=== PATIENT | female | born 1985 | race Caucasian/White ===

== ENCOUNTER 2016-07-11 20:49 | Emergency (ER) | payer MEDICAID ==
[~2016-07-11] VITALS: Ht 162.6 cm; Wt 62.7 kg
[2016-07-11 21:03] VITALS: BP 127/82
[2016-07-11] MEDS ORDERED: OXYcodone/APAP 5/325MG TABLET PO ONE (21:30)
[2016-07-11] MEDS ORDERED: OXYcodone/APAP 5/325MG TABLET ONE (21:31)
== END 2016-07-11 21:57 | disposition home or self-care (01) ==
LOC: ED 21:44
DX: K02.9 Dental caries, unspecified (principal)
CPT/HCPCS: 99283

== ENCOUNTER 2016-08-25 01:29 | Inpatient (IN) | payer MEDICAID ==
[~2016-08-25] VITALS: Ht 165.1 cm; Wt 65.0 kg
[2016-08-25] MEDS ORDERED: PIPERACILLIN/TAZO/PMX 3.375GM 50 ML ONE (02:39)
[2016-08-25] MEDS ORDERED: SODIUM CHLORIDE 0.9% 1,000ML IVBOLUS ONE (03:00)
[2016-08-25] MEDS ORDERED: PIPERACILLIN/TAZO/PMX 3.375GM 50 ML IV ONE (03:00)
[2016-08-25] MEDS ORDERED: VANCOMYCIN PER PHARMACY MC ONE (03:00)
[2016-08-25] MEDS ORDERED: VANCOMYCIN 1,200 MG in SODIUM CHLORIDE 0.9% 250 ML IV ONE (03:00)
[2016-08-25 03:34] LABS: ASPARTATE AMINO TRANSFERASE 52 U/L (15-37); BLOOD UREA NITROGEN 8 mg/dL (7-18)
[2016-08-25] MEDS ORDERED: D5%-0.45NACL+KCL 40MEQ 1,000 ML IV ONE (05:30)
[2016-08-25] MEDS ORDERED: POTASSIUM CHLORIDE 20 MEQ TAB.ER.PRT PO ONE (05:30)
[2016-08-25] MEDS ORDERED: POTASSIUM CHLORIDE 20 MEQ TAB.ER.PRT ONE (05:32)
[2016-08-25] MEDS: ENOXAPARIN 40 MG/0.4 ML SQ SCH (06:30)
[2016-08-25] MEDS ORDERED: TRAZODONE 50MG TABLET PO PRN (06:30)
[2016-08-25] MEDS ORDERED: BISACODYL 10 MG SUPP PR PRN (06:30)
[2016-08-25] MEDS ORDERED: LABETALOL 5MG/ML, 20ML IVPush PRN (06:30)
[2016-08-25] MEDS ORDERED: VANCOMYCIN PER PHARMACY MC PRN (06:30)
[2016-08-25] MEDS ORDERED: POLYETHYLENE GLYCOL 17 GM PACKET PO PRN (06:30)
[2016-08-25] MEDS ORDERED: ACETAMINOPHEN 325 MG TABLET PO PRN (06:30)
[2016-08-25] MEDS ORDERED: PHARMACOKINETIC MONITORING MC PRN (06:30)
[2016-08-25] MEDS ORDERED: DOCUSATE 100 MG CAPSULE PO PRN (06:30)
[2016-08-25 06:42] VITALS: BP 111/75
[2016-08-25 08:03] VITALS: BP 110/69
[2016-08-25] MEDS: NICOTINE 14MG/24 HR PATCH.TD24 TD SCH (10:06)
[2016-08-25] MEDS: MORPHINE SULFATE 4 MG/ML, 1ML IVPush PRN ×4 (10:06→21:40)
[2016-08-25] MEDS: AMPICILLIN/SULBACTAM 3 GM in SODIUM CHLORIDE 0.9% 100 ML IV SCH ×3 (10:06→23:31)
[2016-08-25] MEDS: NS + 20MEQ KCL 1,000 ML IV SCH ×2 (10:06→17:03)
[2016-08-25 11:48] LABS: HEPATITIS C VIRUS ANTIBODY Nonreactive (Nonreactive)
[2016-08-25 12:10] VITALS: BP 105/65
[2016-08-25 12:48] LABS: HIV 1&2 ANTIBODY SCREEN Nonreactive (Nonreactive); HIV-1 p24 ANTIGEN Nonreactive (Nonreactive)
[2016-08-25] MEDS ORDERED: HYDROmorphone 2 MG/ML, 1ML ONE ×3 (14:42→15:41)
[2016-08-25] MEDS ORDERED: MIDAZOLAM 1 MG/ML, 2ML ONE ×2 (14:42)
[2016-08-25] MEDS ORDERED: PROPOFOL 10 MG/ML, 20ML ONE (14:50)
[2016-08-25] MEDS ORDERED: MIDAZOLAM 1 MG/ML, 2ML IV PRN (15:30)
[2016-08-25] MEDS ORDERED: FENTANYL PF 100 MCG/2ML IV PRN (15:30)
[2016-08-25] MEDS ORDERED: OXYcodone 5 MG/5 ML ORAL.SOL UDC PO PRN (15:30)
[2016-08-25] MEDS ORDERED: ONDANSETRON 2MG/ML, 2ML IVPush PRN (15:30)
[2016-08-25] MEDS ORDERED: hydrALAzine 20 MG/ML, 1ML IV PRN (15:30)
[2016-08-25] MEDS ORDERED: PROMETHAZINE 25 MG/ML, 1ML IV PRN (15:30)
[2016-08-25] MEDS ORDERED: LABETALOL 5MG/ML, 20ML IV PRN (15:30)
[2016-08-25] MEDS ORDERED: MEPERIDINE/PF 25MG/0.5ML IVPush PRN (15:30)
[2016-08-25] MEDS ORDERED: ALBUTEROL SULFATE 2.5 MG/3 ML NPPB PRN (15:30)
[2016-08-25] MEDS ORDERED: HYDROmorphone 1 MG/ML, 1ML IV PRN (15:30)
[2016-08-25] MEDS ORDERED: OXYcodone 5 MG/5 ML ORAL.SOL UDC ONE (15:41)
[2016-08-25] MEDS ORDERED: FENTANYL PF 100 MCG/2ML ONE (15:41)
[2016-08-25] MEDS: VANCOMYCIN 1,200 MG in SODIUM CHLORIDE 0.9% 250 ML IV SCH (18:17)
[2016-08-25 19:12] VITALS: BP 125/80
[2016-08-25] MEDS: POTASSIUM CHLORIDE 20 MEQ TAB.ER.PRT PO SCH (21:28)
[2016-08-25 21:45] VITALS: BP 115/76
[2016-08-26 01:16] VITALS: BP 94/65
[2016-08-26] MEDS: NS + 20MEQ KCL 1,000 ML IV SCH ×4 (01:54→19:26)
[2016-08-26] MEDS: AMPICILLIN/SULBACTAM 3 GM in SODIUM CHLORIDE 0.9% 100 ML IV SCH ×5 (05:47→22:55)
[2016-08-26] MEDS: VANCOMYCIN 1,200 MG in SODIUM CHLORIDE 0.9% 250 ML IV SCH ×2 (06:35→18:29)
[2016-08-26] MEDS: MORPHINE SULFATE 4 MG/ML, 1ML IVPush PRN ×4 (06:36→21:25)
[2016-08-26 07:23] LABS: BLOOD UREA NITROGEN 8 mg/dL (7-18)
[2016-08-26 07:30] VITALS: BP 102/57
[2016-08-26] MEDS: POTASSIUM CHLORIDE 20 MEQ TAB.ER.PRT PO SCH ×2 (08:34→17:15)
[2016-08-26] MEDS: NICOTINE 14MG/24 HR PATCH.TD24 TD SCH (12:47)
[2016-08-26 14:25] VITALS: BP 103/68
[2016-08-26 20:00] VITALS: BP 110/68
[2016-08-26] MEDS: ENOXAPARIN 40 MG/0.4 ML SQ SCH (20:15)
[2016-08-27] MEDS: NS + 20MEQ KCL 1,000 ML IV SCH (01:17)
[2016-08-27 01:23] VITALS: BP 117/73
[2016-08-27] MEDS: MORPHINE SULFATE 4 MG/ML, 1ML IVPush PRN ×4 (01:24→19:57)
[2016-08-27] MEDS: SODIUM CHLORIDE 0.9% 1,000 ML IV SCH ×3 (03:08→23:00)
[2016-08-27] MEDS: AMPICILLIN/SULBACTAM 3 GM in SODIUM CHLORIDE 0.9% 100 ML IV SCH ×4 (04:39→23:07)
[2016-08-27] MEDS: VANCOMYCIN 1,200 MG in SODIUM CHLORIDE 0.9% 250 ML IV SCH (06:09)
[2016-08-27 06:24] LABS: BLOOD UREA NITROGEN 5 mg/dL (7-18)
[2016-08-27 06:28] LABS: ASPARTATE AMINO TRANSFERASE 28 U/L (15-37)
[2016-08-27 06:40] VITALS: BP 103/67
[2016-08-27] MEDS: POTASSIUM CHLORIDE 20 MEQ TAB.ER.PRT PO SCH (07:30)
[2016-08-27 07:42] VITALS: BP 111/74
[2016-08-27] MEDS ORDERED: HYDROmorphone 1 MG/ML, 1ML IV ONE (10:30)
[2016-08-27] MEDS ORDERED: LIDOCAINE 1%, 20ML INFIL ONE (11:30)
[2016-08-27] MEDS ORDERED: LIDOCAINE 4% TOPICAL SOLUTION 50 ML TP ONE (11:30)
[2016-08-27] MEDS: NICOTINE 14MG/24 HR PATCH.TD24 TD SCH (12:12)
[2016-08-27 12:36] VITALS: BP 101/68
[2016-08-27 18:45] VITALS: BP 93/57
[2016-08-27] MEDS: ENOXAPARIN 40 MG/0.4 ML SQ SCH (19:57)
[2016-08-28 00:01] VITALS: BP 113/73
[2016-08-28] MEDS: MORPHINE SULFATE 4 MG/ML, 1ML IVPush PRN ×6 (00:01→22:13)
[2016-08-28] MEDS: VANCOMYCIN 1,200 MG in SODIUM CHLORIDE 0.9% 250 ML IV SCH ×2 (00:01→17:56)
[2016-08-28] MEDS: AMPICILLIN/SULBACTAM 3 GM in SODIUM CHLORIDE 0.9% 100 ML IV SCH ×4 (04:45→22:14)
[2016-08-28] MEDS: SODIUM CHLORIDE 0.9% 1,000 ML IV SCH ×3 (04:45→22:14)
[2016-08-28 05:56] LABS: BLOOD UREA NITROGEN 7 mg/dL (7-18)
[2016-08-28 07:35] VITALS: BP 118/71
[2016-08-28] MEDS: NICOTINE 14MG/24 HR PATCH.TD24 TD SCH (11:49)
[2016-08-28 13:18] VITALS: BP 116/78
[2016-08-28 18:35] VITALS: BP 115/74
[2016-08-28] MEDS: ENOXAPARIN 40 MG/0.4 ML SQ SCH (18:58)
[2016-08-28] MEDS ORDERED: ACETAMINOPHEN 325 MG TABLET PO PRN (22:30)
[2016-08-28] MEDS ORDERED: BISACODYL 10 MG SUPP PR PRN (22:30)
[2016-08-29 00:16] VITALS: BP 118/81
[2016-08-29] MEDS: MORPHINE SULFATE 4 MG/ML, 1ML IVPush PRN ×6 (02:17→23:34)
[2016-08-29] MEDS: SODIUM CHLORIDE 0.9% 1,000 ML IV SCH ×2 (04:48→12:50)
[2016-08-29] MEDS: AMPICILLIN/SULBACTAM 3 GM in SODIUM CHLORIDE 0.9% 100 ML IV SCH ×4 (04:48→22:52)
[2016-08-29 05:08] LABS: BLOOD UREA NITROGEN 11 mg/dL (7-18)
[2016-08-29 06:45] VITALS: BP 104/71
[2016-08-29] MEDS: VANCOMYCIN 1,200 MG in SODIUM CHLORIDE 0.9% 250 ML IV SCH (11:52)
[2016-08-29] MEDS: NICOTINE 14MG/24 HR PATCH.TD24 TD SCH (12:05)
[2016-08-29 12:40] VITALS: BP 109/70
[2016-08-29] MEDS: ENOXAPARIN 40 MG/0.4 ML SQ SCH (19:33)
[2016-08-29 19:56] VITALS: BP 108/74
[2016-08-30 02:26] VITALS: BP 103/65
[2016-08-30] MEDS: MORPHINE SULFATE 4 MG/ML, 1ML IVPush PRN ×5 (03:55→22:35)
[2016-08-30] MEDS: AMPICILLIN/SULBACTAM 3 GM in SODIUM CHLORIDE 0.9% 100 ML IV SCH (04:37)
[2016-08-30] MEDS: VANCOMYCIN 1,200 MG in SODIUM CHLORIDE 0.9% 250 ML IV SCH (05:25)
[2016-08-30 05:38] LABS: BLOOD UREA NITROGEN 15 mg/dL (7-18)
[2016-08-30 07:06] VITALS: BP 109/72
[2016-08-30] MEDS: CEFTRIAXONE 1,000 MG in SODIUM CHLORIDE 0.9% 50 ML IV SCH (09:44)
[2016-08-30] MEDS: METRONIDAZOLE PMX 500MG/100ML 100 ML IV SCH ×2 (10:40→18:12)
[2016-08-30] MEDS: NICOTINE 14MG/24 HR PATCH.TD24 TD SCH (12:35)
[2016-08-30 14:18] VITALS: BP 112/73
[2016-08-30 18:50] VITALS: BP 110/70
[2016-08-30] MEDS: ENOXAPARIN 40 MG/0.4 ML SQ SCH (20:00)
[2016-08-31] MEDS: METRONIDAZOLE PMX 500MG/100ML 100 ML IV SCH ×2 (00:57→09:25)
[2016-08-31 02:27] VITALS: BP 100/64
[2016-08-31] MEDS: MORPHINE SULFATE 4 MG/ML, 1ML IVPush PRN ×5 (02:48→20:39)
[2016-08-31 07:36] VITALS: BP 109/71
[2016-08-31] MEDS: CEFTRIAXONE 1,000 MG in SODIUM CHLORIDE 0.9% 50 ML IV SCH (08:33)
[2016-08-31] MEDS: NICOTINE 14MG/24 HR PATCH.TD24 TD SCH (12:28)
[2016-08-31 14:56] VITALS: BP 122/80
[2016-08-31] MEDS: metroNIDAZOLE 500 MG TABLET PO SCH ×2 (17:36→20:39)
[2016-08-31 18:37] VITALS: BP 113/76
[2016-08-31] MEDS: ENOXAPARIN 40 MG/0.4 ML SQ SCH (20:39)
[2016-09-01] MEDS: MORPHINE SULFATE 4 MG/ML, 1ML IVPush PRN ×5 (00:44→20:29)
[2016-09-01 01:53] VITALS: BP 93/54
[2016-09-01 08:00] VITALS: BP 111/71
[2016-09-01] MEDS: metroNIDAZOLE 500 MG TABLET PO SCH ×3 (09:22→20:29)
[2016-09-01] MEDS: CEFTRIAXONE 1,000 MG in SODIUM CHLORIDE 0.9% 50 ML IV SCH (09:22)
[2016-09-01 13:05] VITALS: BP 128/75
[2016-09-01] MEDS: NICOTINE 14MG/24 HR PATCH.TD24 TD SCH (14:21)
[2016-09-01 18:32] VITALS: BP 113/74
[2016-09-01] MEDS: ENOXAPARIN 40 MG/0.4 ML SQ SCH (20:00)
[2016-09-02 02:00] VITALS: BP 107/66
[2016-09-02] MEDS: MORPHINE SULFATE 4 MG/ML, 1ML IVPush PRN ×4 (03:03→19:42)
[2016-09-02 07:06] VITALS: BP 125/77
[2016-09-02] MEDS: CEFTRIAXONE PMX 1GM/50ML 50 ML IV SCH (08:46)
[2016-09-02] MEDS: metroNIDAZOLE 500 MG TABLET PO SCH ×3 (08:46→20:53)
[2016-09-02] MEDS: NICOTINE 14MG/24 HR PATCH.TD24 TD SCH (11:57)
[2016-09-02 12:46] VITALS: BP 107/71
[2016-09-02 20:30] VITALS: BP 118/80
[2016-09-02] MEDS: ENOXAPARIN 40 MG/0.4 ML SQ SCH (20:53)
[2016-09-03] MEDS: MORPHINE SULFATE 4 MG/ML, 1ML IVPush PRN ×4 (00:08→13:36)
[2016-09-03 04:44] VITALS: BP 100/63
[2016-09-03 05:46] LABS: BLOOD UREA NITROGEN 25 mg/dL (7-18)
[2016-09-03 06:35] VITALS: BP 106/66
[2016-09-03] MEDS: metroNIDAZOLE 500 MG TABLET PO SCH (08:55)
[2016-09-03] MEDS: CEFTRIAXONE PMX 1GM/50ML 50 ML IV SCH (09:22)
[2016-09-03] MEDS: NICOTINE 14MG/24 HR PATCH.TD24 TD SCH (13:36)
[2016-09-03] MEDS ORDERED: METR500T PO (15:20)
[2016-09-03] MEDS ORDERED: LACT1CAP24 PO (15:20)
[2016-09-03] MEDS ORDERED: AMOX1TAB64 PO (15:20)
== END 2016-09-03 16:43 | disposition home or self-care (01) | DRG 872 ==
LOC: ED 03:19 → EDIP 03:58 → 4WST 06:17
PROVIDERS: ADMIT Internal Medicine; ATTEND Internal Medicine
PROC: 0X9D0ZZ Drainage of Right Lower Arm, Open Approach (ICD-10-PCS; principal; 2016-08-25 15:45)
DX: A41.9 Sepsis, unspecified organism (principal); L02.413 Cutaneous abscess of right upper limb; L03.113 Cellulitis of right upper limb; E87.1 Hypo-osmolality and hyponatremia; F17.210 Nicotine dependence, cigarettes, uncomplicated; F11.10 Opioid abuse, uncomplicated; E87.6 Hypokalemia; Z71.51 Drug abuse counseling and surveillance of drug abuser; Z71.6 Tobacco abuse counseling
CPT/HCPCS: 36415; 80048; 80053; 80074; 80202; 83605; 83735; 84145; 84439; 84443; 84703; 85025; 85610; 85730; 86703; 87040; 87070; 87075; 87147; 87205; 87899; 96365; 96366; 96367; 96375; J0295; J0696; J1170; J1650; J2250; J2543; J2704; J3010; J3370; J3480; J3490; G0435; J7030; J7050

== ENCOUNTER → 2016-09-08 | Outpatient (CLI) | payer MEDICAID ==
[~2016-09-08] MED LIST: AMOX1TAB64 PO; LACT1CAP24 PO; METR500T PO
== END | disposition home or self-care (01) ==
LOC: WOUND 12:55
PROVIDERS: ATTEND Internal Medicine
DX: T81.31XA Disruption of external operation (surgical) wound, not elsewhere classified, initial encounter (principal); F17.210 Nicotine dependence, cigarettes, uncomplicated; F11.90 Opioid use, unspecified, uncomplicated; Y92.89 Other specified places as the place of occurrence of the external cause; Y83.8 Other surgical procedures as the cause of abnormal reaction of the patient, or of later complication, without mention of misadventure at the time of the procedure
CPT/HCPCS: 97597; 99215

== ENCOUNTER → 2016-09-17 | Outpatient (CLI) | payer MEDICAID | END | disposition home or self-care (01) | LOC: WOUND 11:00 | PROVIDERS: ATTEND Physician Assistant | DX: T81.31XD Disruption of external operation (surgical) wound, not elsewhere classified, subsequent encounter (principal); F17.210 Nicotine dependence, cigarettes, uncomplicated; F11.20 Opioid dependence, uncomplicated; L02.413 Cutaneous abscess of right upper limb; Y83.8 Other surgical procedures as the cause of abnormal reaction of the patient, or of later complication, without mention of misadventure at the time of the procedure | CPT/HCPCS: 17250 ==